=== PATIENT | female | born 1950 | race African-American/Black ===

== ENCOUNTER 2021-01-25 18:56 | Emergency (ER) | payer MEDICARE, MEDICAID ==
[~2021-01-25] VITALS: Ht 157.5 cm; Wt 95.3 kg
[2021-01-25] MEDS ORDERED: cloNIDine HCL 0.1 MG TAB ONE (19:05)
[2021-01-25] MEDS ORDERED: cloNIDine HCL 0.1 MG TAB PO ONE (19:15)
[2021-01-25 20:08] LABS: Basophils # (auto) 0.1 10 ^3/uL (0-0.2); Basophils % (auto) 1.2 % (0.0-2.0); Eosinophils # (auto) 0 10 ^3/uL (0-0.8); Eosinophils % (auto) 0.4 % (0.0-7.0); Hematocrit 48.1 % (36.0-46.0); Hemoglobin 16.4 g/dL (12.2-16.2); Lymphocytes # (auto) 1.9 10 ^3/uL (0.4-5.4); Lymphocytes % (auto) 16.8 % (10.0-50.0); Mean Corpuscular Hemoglobin 29.5 pg (28.0-32.0); Mean Corpuscular Hgb Conc. 34.1 g/dL (32.0-36.0); Mean Corpuscular Volume 86.4 fL (80.0-100.0); Monocytes # (auto) 0.8 10 ^3/uL (0-1.3); Monocytes % (auto) 7.5 % (0.0-12.0); Neutrophils # (auto) 8.3 10 ^3/uL (1.6-8.6); Neutrophils % (auto) 74.1 % (37.0-80.0); Nucleated Red Blood Cells % 0.1 %; Red Blood Cells 5.57 10^6/uL (4.0-5.20); Red Cell Distribution Width 14.2 % (11.8-14.3); White Blood Cell 11.2 10^3/uL (4.4-10.8)
[2021-01-25] MEDS ORDERED: hydrALAZINE HCL 20 MG/ML VL IV ONE (20:15)
[2021-01-25] MEDS ORDERED: ONDANSETRON HCL 4 MG/2 ML VIAL IV ONE (20:15)
[2021-01-25 20:21] LABS: Albumin 3.5 g/dL (3.4-5.0); Anion Gap 10 (5-15); Blood Urea Nitrogen 29 mg/dL (7-18); Calcium 9.7 mg/dL (8.5-10.1); Carbon Dioxide 28 mmol/L (21-32); Chloride 100 mmol/L (98-107); Glucose 110 mg/dL (74-106); Magnesium 2.9 mg/dL (1.6-2.6); Sodium 138 mmol/L (136-145)
[2021-01-25 20:23] LABS: INR 1.03 (0.9-1.15); Partial Thromboplastin Time 27.8 sec (23.0-31.2)
[2021-01-25 20:26] LABS: Alanine Aminotransferase 44 U/L (13-56); Alkaline Phosphatase 118 U/L (45-117); Aspartate Aminotransferase 45 U/L (15-37); BUN/Creatinine Ratio 19.2; GFR African American 44 mL/min; GFR Non-African American 36 mL/min; Total Protein 8.1 g/dL (6.4-8.2)
[2021-01-25 20:37] LABS: Potassium 2.9 mmol/L (3.5-5.1)
[2021-01-25] MEDS ORDERED: POTASSIUM CHL 20MEQ/100ML 100 ML IV ONE (20:41)
[2021-01-25 20:50] VITALS: BP 153/87
== END 2021-01-25 21:09 | disposition short-term general hospital (02) ==
LOC: ER 18:56
DX: I61.5 Nontraumatic intracerebral hemorrhage, intraventricular (principal); I10 Essential (primary) hypertension; E87.6 Hypokalemia; Z20.822 Contact with and (suspected) exposure to COVID-19
CPT/HCPCS: 36415; 70450; 71045; 80053; 83735; 84484; 85025; 85610; 85730; 87426; 93005; 96365; 96375; 99285; J0360; J2405; J3480